=== PATIENT | female | born 1990 | race Asian ===

== ENCOUNTER 2021-04-01 06:29 | Emergency (ER) | payer MEDICAID ==
[~2021-04-01] VITALS: Ht 160 cm; Wt 61.2 kg
[2021-04-01 06:32] VITALS: BP_SYST 133
[2021-04-01 07:04] LABS: BASOPHILS # (AUTO) 0.1 K/uL (0.0-0.2); BASOPHILS % (AUTO) 0.9 % (0.0-2.0); EOSINOPHILS # (AUTO) 0.5 K/uL (0.0-0.4); EOSINOPHILS % (AUTO) 3.7 % (0.0-4.0); HEMOGLOBIN 12.1 g/dL (12.0-16.0); LYMPHOCYTES # (AUTO) 4.3 K/uL (1.0-5.5); LYMPHOCYTES % (AUTO) 31.8 % (20.5-51.5); MEAN CORPUSCULAR HEMOGLOBIN 30 pg (27-31); MEAN CORPUSCULAR HGB CONC 34 % (32-36); MEAN CORPUSCULAR VOLUME 90 fL (79.0-98.0); MONOCYTES # (AUTO) 0.8 K/uL (0.0-1.0); MONOCYTES % (AUTO) 5.8 % (1.7-9.3); NEUTROPHILS # (AUTO) 7.8 K/uL (1.8-7.7); NEUTROPHILS % (AUTO) 57.8 % (40.0-70.0); PLATELET COUNT (AUTO) 360 K/uL (130-430); RED BLOOD CELL COUNT(AUTO) 4.01 MIL/uL (4.2-6.2); RED CELL DISTRIBUTION WIDTH 12.2 % (9.0-15.0); WHITE BLOOD COUNT (AUTO) 13.5 K/uL (4.8-10.8)
[2021-04-01 07:18] LABS: PROTHROMBIN TIME 9.9 SECS (9.5-12.5)
[2021-04-01 07:20] LABS: CALCIUM 8.1 mg/dL (8.4-11.0); CREATININE 0.47 mg/dL (0.55-1.30); POTASSIUM 3.5 mmol/L (3.5-5.1)
[2021-04-01 07:34] LABS: ALBUMIN 3.3 g/dL (3.4-4.8); FREE T4 (FREE THYROXINE) 1.3 ng/dl (0.8-1.5); THYROID STIMULATING HORMONE 1.96 uIu/mL (0.36-3.74); TOTAL BILIRUBIN 0.3 mg/dL (0.0-1.0)
[2021-04-01 08:13] LABS: BARBITURATE, URINE NEGATIVE (NEG <=200); BENZODIAZEPINE, URINE NEGATIVE (NEG <=150); CANNABINOID, URINE NEGATIVE (NEG <=50); COCAINE, URINE NEGATIVE (NEG <=150); METHAMPHETAMINES SCREEN,URINE NEGATIVE (NEG <=500); OPIATE, URINE NEGATIVE (NEG <=100); PHENCYCLIDINE SCREEN,URINE NEGATIVE (NEG <=25); UR TRICYCLIC ANTIDEPRESSANTS NEGATIVE (NEG <=300); URINE AMPHETAMINE NEGATIVE (NEG <=500); URINE METHADONE NEGATIVE (NEG <=200); URINE OXYCODONE SCREEN NEGATIVE (NEG <=100); URINE PROPOXYPHENE SCREEN NEGATIVE (NEG <=300)
[2021-04-01 08:20] VITALS: BP_SYST 133
== END 2021-04-01 08:20 | disposition home or self-care (01) ==
LOC: SED 06:29
DX: S53.402A Unspecified sprain of left elbow, initial encounter (principal); R00.8 Other abnormalities of heart beat; Z79.899 Other long term (current) drug therapy; W18.39XA Other fall on same level, initial encounter; Y93.89 Activity, other specified; Y92.89 Other specified places as the place of occurrence of the external cause; Y99.8 Other external cause status
CPT/HCPCS: 36415; 71045; 80053; 80307; 83880; 84439; 84443; 84484; 85025; 85610-TC; 85730-TC; 93005; 99285

== ENCOUNTER 2021-11-16 20:36 | Emergency (ER) | payer BC, MEDICAID, SELFPAY ==
[~2021-11-16] VITALS: Ht 160 cm; Wt 63.5 kg
[2021-11-16 21:41] VITALS: BP_SYST 133
--- NOTE | 2021-11-16 21:50 | NUR ---
Placed in room 4 . Placed on manager cardiac cath, blood pressure machine and pulse oximeter. To gown for exam. Side rails up.
--- NOTE | 2021-11-16 21:52 | NUR ---
ER Dr. Jain at bedside examining patient.
[2021-11-16] MEDS ORDERED: IBUP-1969 PO (22:27)
[2021-11-16] MEDS ORDERED: CORTEARS LEFT EAR (22:27)
--- NOTE | 2021-11-16 22:33 | NUR ---
Patient given written and verbal discharge instructions and verbalizes understanding. ER MD discussed with patient the results and treatment provided. Patient in stable condition. ID arm band removed. Rx given. Opportunity for questions provided and answered. Medication side effect fact sheet provided.
[2021-11-16 23:26] VITALS: BP_SYST 133
== END 2021-11-16 22:53 | disposition home or self-care (01) ==
LOC: SED 20:36
DX: H60.92 Unspecified otitis externa, left ear (principal)
CPT/HCPCS: 99283